=== PATIENT | male | born 1955 | race Caucasian/White ===

== ENCOUNTER → 2023-04-27 15:25 | Outpatient (BNVA) | payer OTHER, SELFPAY | PROVIDERS: Visit Provider Family Medicine | DX: M77.8 Other enthesopathies, not elsewhere classified (principal); M19.021 Primary osteoarthritis, right elbow; Z13.1 Encounter for screening for diabetes mellitus; Z13.6 Encounter for screening for cardiovascular disorders; Z12.5 Encounter for screening for malignant neoplasm of prostate | CPT/HCPCS: 73030; 73080; 80053; 80061; G0103 ==

== ENCOUNTER 2024-06-21 06:00 | Outpatient (CLI) | payer OTHER, SELFPAY | END 2024-06-21 06:01 | disposition home or self-care (01) | PROVIDERS: PCP Family Medicine; Visit Provider Family Medicine | DX: Z13.6 Encounter for screening for cardiovascular disorders (principal); Z13.1 Encounter for screening for diabetes mellitus; Z13.220 Encounter for screening for lipoid disorders; Z72.0 Tobacco use; Z12.5 Encounter for screening for malignant neoplasm of prostate | CPT/HCPCS: 80053; 80061; G0103 ==

== ENCOUNTER 2024-07-19 09:08 | Outpatient (CLI) | payer OTHER, SELFPAY ==
--- NOTE | 2024-07-19 | CT_ITS ---
WS: [id number] LDCT LUNG CANCER SCREENING TECHNIQUE: Noncontrast CT of the chest with coronal and sagittal reformatted images. CLINICAL INFORMATION: Z72.0 - Tobacco use COMPARISON: None. DLP: 74.69 mGy.cm DIvol: Mean CTDIvol: 1.40 (mGy) All CT scans at [facility] use at least one of these dose optimization techniques: automat ed exposure control; mA and/or kV adjustment per patient size (includes targeted exams where dose is matched to clinical indication); or iterative reconstruction. FINDINGS: Few tiny calcified granulomas. No suspicious pulmonary parenchymal abnormalities. Aortic calcification. Coronary calcification. A few slightly prominent anterior mediastinal lymph nod es likely reactive. No axillary lymphadenopathy. Adrenal glands are normal. Cholelithiasis. Normal GE junction. Mild thoracic kyphosis. Spondylitic changes thoracic spine with endplate Schmorl's nodes. CT/CT lung screening 16396 IMPRESSION: Cholelithiasis. Recommend follow-up ultrasound. LUNG-RADS: 2S-Benign Appearance or Behavior with Significant Findings FOLLOW UP: 12 Month: Continue annual screening with LDCT
== END 2024-07-19 09:09 | disposition home or self-care (01) ==
LOC: RAD 09:09
PROVIDERS: PCP Family Medicine; Visit Provider Family Medicine
DX: Z12.2 Encounter for screening for malignant neoplasm of respiratory organs (principal); Z72.0 Tobacco use; I70.0 Atherosclerosis of aorta; I25.84 Coronary atherosclerosis due to calcified coronary lesion; K80.20 Calculus of gallbladder without cholecystitis without obstruction; M47.814 Spondylosis without myelopathy or radiculopathy, thoracic region; M51.44 Schmorl's nodes, thoracic region
CPT/HCPCS: 71271

== ENCOUNTER 2024-08-14 10:51 | Day surgery (SDC) | payer MEDICARE, SELFPAY ==
[2024-08-14 11:37] VITALS: BP 159/98; PULSE 69; RESP 18; TEMP 36.7; O2SAT 96
[2024-08-14] MEDS: sodium chloride 0.9% 1,000 ML 30 ML IV (11:44)
--- NOTE | 2024-08-14 12:30 | ANES.PREANE2 ---
Pre-Anesthetic Assessment Height/Weight: Height 1.74 m Weight 79.379 kg Temp Pulse Resp BP Pulse Ox O2 Del Method 98.1 F 69 18 159/98 96 Room Air 08/14/24 11:37 08/14/24 11:37 08/14/24 11:37 08/14/24 11:37 08/14/24 11:37 08/14/24 11:37 Operation Date: 08/14/24 12:00 Proposed Procedures p EGD 52676, 19293, G0121, R12, Z12.11(Not Applicable) - Preet Whitmore MD s Colonoscopy(Not Applicable) - Preet Whitmore MD Familial anesthetic complications: None Was Beta Chau taken within 24 hours: N/A Was Clonidine taken within 24 hours: N/A Last intake: Intake Last Liquid Date 08/13/24 Last Liquid Time 23:00 Last Solid Date 08/12/24 Last Solid Time 18:00 Social Tobacco and No alcohol Exam alert, oriented x 3, clear to auscultation bilaterally and regular rate & rhythm Airway Mallampati: Class II Dentition: other (Loose bridge, state not removable) CV/HEM Hypertension Anesthetic Plan ASA status: 2 Anesthesia: MAC Risk of > 500 ml blood loss (7ml/kg in children): No Medications/Allergies Home Medications Medication Instructions Recorded Confirmed Last Taken Type No Known Home Medications 04/27/23 08/13/24 Unknown History Allergies Allergy/AdvReac Type Severity Reaction Status Date / Time No Known Allergies Allergy Verified 08/09/24 14:08 Current Medications Generic Name Dose Route Start Last Admin Trade Name Freq PRN Reason Stop Dose Admin Sodium Chloride 1,000 mls @ 30 mls/hr 08/14/24 11:15 08/14/24 11:44 Sodium Chloride 0.9% IV 30 mls/hr .Q24H MAURILIO Administration PFSH Anesthesia Medical History History of right foot drop Family History Mother Chronic kidney disease (CKD) Father Diabetes Hypertension Brother Hypertension Grandfather Stroke paternal Family/Other Stroke paternal Denies family history of Clotting disorder Bleeding disorder Cancer Thyroid disease Social History Smoking and tobacco/nicotine status: current every day tobacco/nicotine user Data Anesthesia Cardiac Studies: No Data to Display
--- NOTE | 2024-08-14 12:36 | W.PM.OPSUD ---
Surgery/Procedure H&P Update DATE OF PROCEDURE: August 14, 2024 DATE H&P PERFORMED: 08/09/24 H&P UPDATE INFORMATION: I have reviewed H&P completed within last 30 days, I have examined patient prior to procedure and No changes to prior documentation PLANNED PROCEDURE: Operation Date: 08/14/24 12:00 Proposed Procedures p EGD 35556, 43709, G0121, R12, Z12.11(Not Applicable) - Preet Whitmore MD s Colonoscopy(Not Applicable) - Preet Whitmore MD
[2024-08-14 13:06] VITALS: BP 111/66; PULSE 59; RESP 18; TEMP 36.2; O2SAT 96
[2024-08-14 13:15] VITALS: BP 126/69; PULSE 69; RESP 18; TEMP 36.2; O2SAT 96
--- NOTE | 2024-08-14 13:27 | ANE.PACU2 ---
Inpatient post-anesthesia follow up: Airway intact: Yes Vital signs: Temperature 97.2 F Pulse Rate 69 Respiratory Rate 18 Blood Pressure 126/69 Pulse Oximetry 96 Oxygen Delivery Me thod Room Air Oxygen Flow Rate Fraction of Inspir ed Oxygen Hydration adequate: Yes Nausea and vomiting: No Pain level: 1 Mental status: Baseline
== END 2024-08-14 13:55 | disposition home or self-care (01) ==
PROVIDERS: PCP Family Medicine; Visit Provider Student in an Organized Health Care Education/Training Program
PROC: 0DJ08ZZ Inspection of Upper Intestinal Tract, Via Natural or Artificial Opening Endoscopic (ICD-10-PCS; CPT 43235; principal; 2024-08-14 12:00)
PROC: 0DJD8ZZ Inspection of Lower Intestinal Tract, Via Natural or Artificial Opening Endoscopic (ICD-10-PCS; CPT 45330; 2024-08-14 12:00)
DX: Z12.11 Encounter for screening for malignant neoplasm of colon (principal); K52.9 Noninfective gastroenteritis and colitis, unspecified; R12 Heartburn; K29.70 Gastritis, unspecified, without bleeding; I10 Essential (primary) hypertension; F17.200 Nicotine dependence, unspecified, uncomplicated
CPT/HCPCS: 43239; 45331; 88305; J2704; J7030

== ENCOUNTER → 2024-08-27 08:58 | Outpatient (BNVA) | payer MEDICARE, SELFPAY | PROVIDERS: PCP Family Medicine; Visit Provider Student in an Organized Health Care Education/Training Program | DX: Z09 Encounter for follow-up examination after completed treatment for conditions other than malignant neoplasm (principal); R03.0 Elevated blood-pressure reading, without diagnosis of hypertension | CPT/HCPCS: 99214 ==

== ENCOUNTER → 2024-08-29 14:06 | Outpatient (BNVA) | payer MEDICARE, SELFPAY | PROVIDERS: PCP Family Medicine; Visit Provider Family Medicine | DX: I10 Essential (primary) hypertension (principal); R10.12 Left upper quadrant pain; G89.29 Other chronic pain; I49.8 Other specified cardiac arrhythmias | CPT/HCPCS: 93005 ==